=== PATIENT | female | born 1980 | race Caucasian/White ===

== ENCOUNTER 2017-07-06 18:55 | Emergency (ER) | payer SELFPAY ==
[~2017-07-06] VITALS: Ht 167.6 cm; Wt 86.7 kg
[2017-07-06 19:06] VITALS: Ht 167.6 cm; Wt 86.7 kg
== END 2017-07-06 23:13 | disposition left against medical advice (07) ==
LOC: FTE 18:55
DX: Z53.21 Procedure and treatment not carried out due to patient leaving prior to being seen by health care provider (principal)

== ENCOUNTER 2019-03-07 07:00 | Day surgery (SDC) | payer OTHER ==
[2019-03-07] VITALS (13 sets, daily range): BP systolic 113–128; BP diastolic 64–78; PULSE 62–76; RESP 10–19; Ht 165.1 cm; Wt 81.7 kg
[~2019-03-07] VITALS: Ht 165.1 cm; Wt 81.7 kg
[~2019-03-07 07:00] MED LIST: LEVO100T82 PO; NORT25CA PO
[2019-03-07] MEDS ORDERED: LACTATED RINGER'S 1,000 ML IV SCH (08:30)
--- NOTE | 2019-03-07 09:10 | PREAC ---
Date/Time of Note Date/Time of Note DATE: 03/07/19 TIME: 09:09 Anesthesia Eval and Record Evaluation Time Pre-Procedure Interview DATE: 03/07/19 TIME: 09:09 Age 38 Sex female NPO: 8 hrs Preoperative diagnosis Uterine fibroid Planned procedure Endometrial ablation Past Medical History Past Medical History: Includes Endo: Hypothyroid Psych: Depression Surgery & Anesthesia Issues No known issue Meds Anticoagulation: No Beta James within 24 hr: No Reason Beta James not given: Pt. not on B-James Reported Medications Nortriptyline Hcl* (Nortriptyline Hcl*) 25 Mg Capsule, 25 MG PO DAILY, CAP 03/07/19 Levothyroxine Sodium* (Levoxyl*) 100 Mcg Tablet, 100 MCG PO BEFORE BREAKFAST, #30 TAB 03/07/19 Current Medications Lactated Ringer's 1,000 ml @ 125 mls/hr Q8H IV ; Start 03/07/19 at 08:30 Meds reviewed: Yes Allergies Coded Allergies: No Known Allergy (Unverified , 03/07/19) Allergies Reviewed: Yes Labs/Studies Labs Reviewed: Reviewed by anesthesiologist test: Negative Pre-procedure Exam Last vitals Vital Signs Date Temp Pulse Resp B/P (MAP) Pulse Ox O2 O2 Flow FiO2 Time Delivery Rate 03/07/19 98.4 74 16 114/71 100 Room Air 08:16 (85) Airway: Adequate mouth opening Mallampati: Mallampati II Teeth: Normal Lung: Normal Heart: Normal ASA Physical Status ASA physical status: 2 Emergency: None Planned Anesthetic General/MAC: ETT, LMA Planned Pain Management Parenteral pain med Pre-operative Attestations Prior to commencing anesthesia and surgery, the patient was re-evaluated, there was verification of: *The patient's identity *The results of appropriate recent lab work and preoperative vital signs *The above evaluation not changing prior to induction *Anesthetic plan, risk benefits, alternative and complications discussed with patient/family; questions answered; patient/family understands, accepts and wishes to proceed. LAWANDA LIZ MD Mar 07, 2019 09:10
--- NOTE | 2019-03-07 09:21 | HPN ---
Date/Time of Note Date/Time of Note DATE: 03/07/19 TIME: 09:20 Interval H&P Admission Note Pt. seen H&P reviewed: No system changes KEVIN ALEGRIA MD Mar 07, 2019 09:21
[2019-03-07] MEDS ORDERED: METOCLOPRAMIDE 10 MG INJ ONE (09:39)
[2019-03-07] MEDS ORDERED: LIDOCAINE 2% (SDV) 5 ML INJ ONE (09:39)
[2019-03-07] MEDS ORDERED: ONDANSETRON 4 MG INJ ONE (09:39)
[2019-03-07] MEDS ORDERED: MEPERIDINE 100 MG INJ ONE (09:39)
[2019-03-07] MEDS ORDERED: PROPOFOL 20 ML ONE (09:39)
[2019-03-07] MEDS ORDERED: CEFAZOLIN 1 GM INJ ONE (10:12)
[2019-03-07] MEDS ORDERED: OXYCODONE/ACETAMINOPHEN (5/325) TAB PO PRN ×2 (10:30)
[2019-03-07] MEDS ORDERED: FENTAnyl 50 MCG/ML VIAL IV PRN ×3 (10:30)
[2019-03-07] MEDS ORDERED: MEPERIDINE 25 MG INJ IV PRN (10:30)
[2019-03-07] MEDS ORDERED: MIDAZOLAM 1 MG/ML 2 ML INJ IV PRN (10:30)
[2019-03-07] MEDS ORDERED: ONDANSETRON 4 MG INJ IV PRN (10:30)
[2019-03-07] MEDS ORDERED: METOCLOPRAMIDE 10 MG INJ IV PRN (10:30)
[2019-03-07] MEDS ORDERED: DIPHENHYDRAMINE 50 MG INJ IV PRN (10:30)
[2019-03-07] MEDS ORDERED: HYDROmorphONE 1 MG/5 ML IV SYRINGE IV PRN ×2 (10:30)
--- NOTE | 2019-03-07 10:55 | SIPON ---
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 Anesthesia: general Estimated blood loss: minimal Transfusion Required none Specimen none Grafts/Implants none Complications none KEVIN ALEGRIA MD Mar 07, 2019 10:55
--- NOTE | 2019-03-07 10:56 | PD.PPDC ---
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
[2019-03-07] MEDS: HYDROmorphONE 1 MG/5 ML IV SYRINGE IV PRN ×2 (11:26→11:31)
--- NOTE | 2019-03-07 12:16 | PAC ---
Date/Time of Note Date/Time of Note DATE: 03/07/19 TIME: 12:15 Post-Anesthesia Notes Post-Anesthesia Note Last documented vital signs Vital Signs Date Temp Pulse Resp B/P (MAP) Pulse Ox O2 O2 Flow FiO2 Time Delivery Rate 03/07/19 64 17 115/64 100 Room Air 11:53 (81) 03/07/19 98.6 11:08 Activity: WNL Respiratory function: WNL Cardiovascular function: WNL Mental status: Baseline Pain reasonably controlled: Yes Hydration appropriate: Yes Nausea/Vomiting absent: Yes Comments BT: 98.4 LAWANDA LIZ MD Mar 07, 2019 12:16
--- NOTE | 2019-03-07 20:17 | RADRPT ---
Vent Rate: 71 bpm RR Interval: 848 msec W[place] Interval: 183 msec QRS Duration: 96 msec QT Interval: 406 msec QTC Interval: 441 msec P-R-T [place]: 20 - 83 - 47 degrees Sinus rhythm...normal P axis, V-rate 50- 99 Electronically Signed By: Michele Leonardo
--- NOTE | 2019-03-08 11:10 | OPR ---
DATE OF OPERATION: 03/07/2019 PREOPERATIVE DIAGNOSIS: Uterine leiomyoma and abnormal uterine bleeding. POSTOPERATIVE DIAGNOSIS: Uterine leiomyoma and abnormal uterine bleeding. OPERATION PERFORMED: Hysteroscopic hydrothermal endometrial ablation. ANESTHESIA: General. ANESTHESIOLOGIST: Dr. Howell. SURGEON: Judd Carlson MD HAND GLUER AND SLICER: from [employer]. SECOND HAND GLUER AND SLICER: Alejandro biomedical engineering aide. SURGEON: Judd Carlson MD PROCEDURE: Under the proper induction of general anesthesia, the patient was placed in the dorsal li thotomy position. Perineal area and vagina wall was prepped and draped in usual aseptic manner. Bim anual examination, uterus felt to be an extremely anteverted and anteflexed and slightly increased in size, On inspection, external genitalia revealed no gross abnormality. Weighted speculum was introd uced, cervix was identified which was a hypertrophic fibroid and parous appearing. There was no lilian s lesion. Anterior lip of the cervix was grasped with a single tooth tenaculum after adjustment uter ine axis in order to insert the hysteroscope horizontally. Cavity was sounded, which was approximate ly 9 cm in depth and because of the severe anteflexed uterus with multiple attempts to insert the hys teroscope, which was more than a dozen times and finally direct visualization of the cervical os was obtained and able to be inserted successfully, which was, of course after the dilation of the cervix up to size 8. So the proper position was obtained to initiate the ablation in the usual cystocele ch ecked, which was adequately sealed and ablation procedure was initiated. After heating up to 80 cent igrade and the entire cavity was ablated for 10 minutes and 2 minutes of cooling and procedure was co mpleted, picture was taken. Prior to ablation and normal post-ablation and the hysteroscope was izaiah cortez and all the instruments were removed from the operative field. Estimated blood loss negligible. The patient withstood procedure well and was sent to recovery room in stable condition. Dictated By: JUDD OLIVIA/KWADWO Conf#: [id number] DID#: [id number]
== END 2019-03-07 12:55 | disposition home or self-care (01) ==
LOC: SDS 07:00
PROVIDERS: ATTEND Obstetrics & Gynecology
DX: D25.0 Submucous leiomyoma of uterus (principal); N93.8 Other specified abnormal uterine and vaginal bleeding; E03.9 Hypothyroidism, unspecified; F32.9 Major depressive disorder, single episode, unspecified; R94.31 Abnormal electrocardiogram [ECG] [EKG]
CPT/HCPCS: 58563; 93005; J0690; J1170; J2175; J2405; J2765; Z7610; 84703